=== PATIENT | female | born 1975 | race Caucasian/White ===

== ENCOUNTER 2019-09-18 10:04 | Emergency (ER) | payer OTHER, MEDICAID ==
[~2019-09-18] VITALS: Ht 165.1 cm; Wt 78.0 kg
[2019-09-18 11:38] LABS: HEMATOCRIT. 38.8 % (36.0-48.0); HEMOGLOBIN. 12.7 g/dL (12.0-16.0); MEAN CORPUSCULAR HEMOGLOBIN 26.5 pg (28.0-32.0); MEAN CORPUSCULAR VOLUME 80.7 fL (81.0-99.0); MEAN PLATELET VOLUME 8.5 fl (7.4-10.4); PLATELET 283 x1000/uL (130-400); RED BLOOD CELL COUNT 4.81 mill/uL (4.2-5.4); RED CELL DISTRIBUTION WIDTH 14.3 % (11.6-14.6)
[2019-09-18 11:44] LABS: CHLORIDE 108 mEq/L (98-107)
[2019-09-18 12:03] LABS: PLATELET ESTIMATE NORMAL
[2019-09-18 15:09] VITALS: BP 128/92
== END 2019-09-18 15:14 | disposition home or self-care (01) ==
LOC: ER 10:45
DX: T40.2X1A Poisoning by other opioids, accidental (unintentional), initial encounter (principal); Z98.84 Bariatric surgery status; Y92.89 Other specified places as the place of occurrence of the external cause
CPT/HCPCS: 36415; 71045; 80053; 83880; 84484; 85025; 99285